=== PATIENT | male | born 1995 | race Caucasian/White ===

== ENCOUNTER 2019-05-08 14:45 | Emergency (ER) | payer SELFPAY, MEDICAID ==
[2019-05-08] MEDS: IBUPROFEN 800 MG TAB PO (15:47)
== END 2019-05-08 17:40 | disposition home or self-care (01) ==
LOC: FTE 17:40
DX: R00.2 Palpitations (principal); M54.6 Pain in thoracic spine
CPT/HCPCS: 93005; 99283-25